=== PATIENT | female | born 1990 | race Caucasian/White ===

== ENCOUNTER 2024-12-10 17:36 | Emergency (ER) | payer BC ==
--- NOTE | 2024-12-10 18:24 | RAD REPORT ---
EXAMINATION: ONE VIEW CHEST XR CLINICAL INDICATION: Cough;Congestion TECHNIQUE: Frontal chest projection is submitted. Examination is limited by patient positioning and t echnique. COMPARISON: No prior exam. FINDINGS: The lungs are well inflated and clear. The heart is upper limit of normal in size. No displaced fract ures identified. IMPRESSION: No acute intrathoracic abnormalities.
[2024-12-10] MEDS ORDERED: ONDANSETRON 4 MG/2 ML VIAL ONE (18:33)
[2024-12-10] MEDS ORDERED: NA CHLORIDE 0.9% 1,000 ML ONE (18:33)
[2024-12-10] MEDS ORDERED: IBUPROFEN 200 MG TAB PO ONE (18:33)
[2024-12-10 18:34] LABS: Influenza A Ag Negative; Influenza B Ag Negative; SARS-CoV-2 Antigen Rapid Res Negative (Negative)
[2024-12-10 18:36] LABS: Absolute Lymphocytes (CBC) 0.8 K/uL (0.7-4.9); Absolute Monocytes 0.3 K/uL (0.1-1.3); Basophils % 0.3 % (0-1.3); Eosinophils % 0.1 % (0-4.4); Hematocrit 40.3 % (36.0-45.0); Hemoglobin 13.8 g/dL (12.0-15.0); Lymphocytes % 25.6 % (15.3-44.8); MCHC 34.3 g/dL (32.0-36.0); MCV 87.6 fL (80-100); MPV 7.4 fL (7.6-11.3); Monocytes % 9.4 % (3.3-12.3); Neutrophils % 64.6 % (41.7-73.7); Nucleated Red Blood Cells % 0.1 % (0-0); Platelets 160 thou/uL (152-406); Red Cell Distribution Width 12.1 % (12.1-15.2)
[2024-12-10 18:37] LABS: Specific Gravity > 1.030 (1.005-1.030); Urine Bacteria None Seen /HPF (<20); Urine Bilirubin NEGATIVE (Negative); Urine Blood Trace (Negative); Urine Clarity Extremely Turbid (Clear); Urine Color Yellow (Yellow); Urine Crystals Unidentified Few /HPF (None Seen); Urine Culture Reflex Order NOT NEEDED; Urine Glucose NEGATIVE (Negative); Urine Ketones 4+ (Over) (Negative); Urine Microscopic Reflex YN ORDER UMIC; Urine Mucus Slight /HPF (None Seen); Urine Nitrite NEGATIVE (Negative); Urine Protein 1+ (Negative); Urine RBC <5 /HPF (None Seen); Urine Urobilinogen 1+ (Normal); Urine WBC <5 /HPF (<5); Urine WBC Clump Rare /HPF (None Seen); Urine Yeast (Budding) Trace /HPF (None Seen)
[2024-12-10 18:50] LABS: Albumin 3.8 g/dL (3.4-5.0); Anion Gap 13.5 mEq/L (5.0-15.0); Bilirubin Total 0.5 mg/dL (0.2-1.0); Globulin 3.9 g/dL (2.3-3.5); Monoscreen NEG (NEG); Potassium 3.5 mEq/L (3.5-5.1); Protein, Total 7.7 g/dL (6.4-8.2)
--- NOTE | 2024-12-10 18:56 | ER ---
Nurse's Notes [facility] Name: Nidhi No Age: 34 yrs Sex: Female : 1990 Arrival Date: 12/10/2024 Time: 17:36 Bed 19 Private MD: Diagnosis: Streptococcal pharyngitis Presentation: 12/10 17:52 Chief complaint: Patient states: fever, chills, nausea , body aches, nausea X 5 days. iw Coronavirus screen: Client presents with at least one sign or symptom that may indicate coronavirus-19. Ebola Screen: No symptoms or risks identified at this time. Initial Sepsis Screen: Does the patient meet any 2 criteria? HR > 90 bpm. Does the patient have a suspected source of infection? No. Patient's initial sepsis screen is negative. Risk Assessment: Do you want to hurt yourself or someone else? Patient reports no desire to harm self or others. Onset of symptoms was December 07, 2024. 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 - Infectious Disease History:: Denies. - Social history:: Smoking status: Patient denies any tobacco usage or history of. Screenin:10 [facility] ED Fall Risk Assessment (Adult) History of falling in the last 3 months, me1 including since admission No falls in past 3 months (0 pts) Confusion or Disorientation No (0 pts) Intoxicated or Sedated No (0 pts) Impaired Gait No (0 pts) Mobility Assist Device Used No (0 pt) Altered Elimination No (0 pt) Score/Fall Risk Level 0 - 2 = Low Risk Maintained a safe environment, Provided non-skid footwear, Hourly rounding (assess needs \T\ fall precautionary measures) done. Abuse screen: Denies threats or abuse. Nutritional screening: No deficits noted. Tuberculosis screening: No symptoms or risk factors identified. Assessment: 18:10 General: Appears ill, well groomed, well developed, well nourished, Behavior is calm, me1 cooperative, appropriate for age, Reports fever, chills, nausea , body aches, nausea X 5 days. Pain: Complains of pain in generalized Pain does not radiate. Pain currently is 6 out of 10 on a pain scale. Quality of pain is described as aching, Pain began 5 days Is continuous. Neuro: Level of Consciousness is awake, alert, obeys commands, Oriented to person, place, time, situation, Appropriate for age. Cardiovascular: Patient's skin is warm and dry. Respiratory: Airway is patent Respiratory effort is even, unlabored, Respiratory pattern is regular, symmetrical. GI: Abdomen is non-distended, Bowel sounds present X 4 quads. Reports nausea, vomiting, since 5 days. : No signs and/or symptoms were reported regarding the genitourinary system. EENT: No signs and/or symptoms were reported regarding the EENT system. Derm: Skin is intact, is healthy with good turgor, Skin is pink, warm \T\ dry. Musculoskeletal: Reports generalized body aches. 19:11 General: Discharge delayed for IV fluids to finish. me1 Vital Signs: 17:52 BP 118 / 80; Pulse 139; Resp 19; Temp 100.4; Pulse Ox 96% on R/A; Weight 68.04 kg; iw Height 5 ft. 4 in. ; 18:00 BP 117 / 72; Pulse 110; Resp 18; Pulse Ox 99% ; me1 19:00 BP 113 / 74; Pulse 112; Resp 18; Pulse Ox 99% ; me1 19:30 BP 104 / 58; Pulse 106; Resp 18; Temp 99.1; Pulse Ox 100% ; me1 17:52 Body Mass Index 25.75 (68.04 kg, 162.56 cm) iw ED Course: 17:38 Patient arrived in ED. am2 17:47 [facility] kb 17:47 Raheem García MD is Attending Physician. kb 17:53 Triage completed. iw 17:54 Arm band placed on. iw 18:09 Group A Streptococcus Rapid Sent. iw 18:09 COVID-19 Ag + Flu A+B Ag Sent. iw 18:10 Patient has correct armband on for positive identification. Bed in low position. Call me1 light in reach. Side rails up X 1. Provided Education on: POC. Verbalized understanding.. Client placed on continuous cardiac and pulse oximetry monitoring. NIBP monitoring applied. Pulse ox on. NIBP on. 18:10 No provider procedures requiring assistance completed. me1 18:19 Chest Single View XRAY In Process Unspecified. EDFL 18:23 Yee Thornton, MYKEL is Primary Nurse. me1 18:40 Garden Screen Profile Sent. me1 18:41 Initial lab(s) drawn, by ED staff, sent to lab. Inserted saline lock: 20 gauge in right me1 antecubital area, using aseptic technique. 19:43 IV discontinued, intact, bleeding controlled, No redness/swelling at site. Pressure me1 dressing applied. Administered Medications: 18:40 Drug: Ondansetron IVP 4 mg IVP once; over 2 minutes Route: IVP; Site: right antecubital;me1 19:08 Follow up: Response: No adverse reaction; Nausea is decreased me1 18:40 Drug: NS 0.9% IV 1000 ml IV at 1 bolus Per protocol; to be given as a bolus over 60 me1 minutes Route: IV; Rate: 1 bolus; Site: right antecubital; 19:31 Follow up: Response: No adverse reaction; IV Status: Completed infusion; IV Intake: me1 1000ml 18:40 Drug: Ibuprofen PO 600 mg PO once Route: PO; me1 19:08 Follow up: Response: No adverse reaction; Temperature is decreased me1 19:33 Drug: Amoxicillin-Clavulanate PO 875 mg PO once Route: PO; me1 19:42 Follow up: Response: No adverse reaction me1 Medication: 18:10 VIS not applicable for this client. me1 Intake: 19:31 IV: 1000ml; Total: 1000ml. me1 Outcome: 18:56 Discharge ordered by MD. bhatia 19:43 Discharged to home ambulatory, me1 19:43 Condition: stable 19:43 Discharge instructions given to patient, Instructed on discharge instructions, follow up and referral plans. medication usage, Demonstrated understanding of instructions, follow-up care, medications, Prescriptions given X 2, 19:43 Patient left the ED. me1 Signatures: Dispatcher [employer] [facility] Dacia Spaulding, CHARY-C [employer] FISHING TOOL OPERATOR-Mateob Keyona Sood RN RN iw Moreno, Amanda am2 Yee Thornton, RN RN me1 Corrections: (The following items were deleted from the chart) 17:54 17:52 BP 118 / 80; Pulse 139bpm; Resp 19bpm; Pulse Ox 96% RA; Temp 100.4F; iw iw 18:41 17:52 Chief complaint: Patient states: fever, chills, nausea , body aches, nausea X 5 me1 days iw 19:31 19:08 Response: No adverse reaction; IV Status: Completed infusion; IV Intake: 1000ml me1 me1
--- NOTE | 2024-12-10 18:56 | EDPHYS ---
Physician Documentation [facility] Name: Nidhi No Age: 34 yrs Sex: Female : 1990 Arrival Date: 12/10/2024 Time: 17:36 Bed 19 Private MD: ED Physician Raheem García HPI: 12/10 17:50 This 34 yrs old Female presents to ER via Unassigned with complaints of Fever, Cough, kb Nasal Congestion, Nausea/Vomiting. 17:50 Pt is a 34 year old female who presents for headache, cough, congestion, nausea, kb vomiting, runny nose, sore throat, fever, chills, bodyaches for 5 days. Hasn't been able to tolerate anything by mouth since Wednesday. . 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 - Infectious Disease History:: Denies. - Social history:: Smoking status: Patient denies any tobacco usage or history of. ROS: 17:50 Constitutional: As per HPI kb Exam: 18:55 Constitutional: This is a well developed, well nourished patient who is awake, alert, kb and in no acute distress. Head/Face: Normocephalic, atraumatic. ENT: Moist Mucous membranes Respiratory: Respirations even and unlabored. No increased work of breathing. Talking in full sentences Abdomen/GI: Soft, non-tender. No distention Skin: Warm, dry with normal turgor. Normal color. MS/ Extremity: Pulses equal, no cyanosis. Neurovascular intact. Full, normal range of motion. Neuro: Awake and alert, GCS 15, oriented to person, place, time, and situation. 18:55 ENT: Posterior pharynx: is normal, 18:55 Cardiovascular: Rate: tachycardic, Vital Signs: 17:52 BP 118 / 80; Pulse 139; Resp 19; Temp 100.4; Pulse Ox 96% on R/A; Weight 68.04 kg; iw Height 5 ft. 4 in. ; 18:00 BP 117 / 72; Pulse 110; Resp 18; Pulse Ox 99% ; me1 19:00 BP 113 / 74; Pulse 112; Resp 18; Pulse Ox 99% ; me1 19:30 BP 104 / 58; Pulse 106; Resp 18; Temp 99.1; Pulse Ox 100% ; me1 17:52 Body Mass Index 25.75 (68.04 kg, 162.56 cm) iw MDM: 17:47 Medical Screening Exam initiated kb 18:55 Data reviewed: vital signs, nurses notes. kb 18:55 Differential diagnosis: flu, covid, pneumonia, strep, dehydration. Counseling: I had a kb detailed discussion with the patient and/or guardian regarding the historical points, exam findings, and any diagnostic results supporting the discharge/admit diagnosis, lab results, radiology results, the need for outpatient follow up, a family practitioner, to return to the emergency department if symptoms worsen or persist or if there are any questions or concerns that arise at home. 12/10 17:51 Order name: CBC with Diff; Complete Time: 18:39 kb 12/10 17:51 Order name: CMP; Complete Time: 18:55 kb 12/10 17:51 Order name: Lipase; Complete Time: 18:55 kb 12/10 17:51 Order name: Test, Urine; Complete Time: 18:39 kb 12/10 17:51 Order name: Urinalysis w/ reflexes; Complete Time: 18:39 kb 12/10 17:51 Order name: [place] Screen Profile; Complete Time: 18:55 kb 12/10 17:51 Order name: Group A Streptococcus Rapid; Complete Time: 18:35 kb 12/10 17:51 Order name: COVID-19 Ag + Flu A+B Ag; Complete Time: 18:35 kb 12/10 17:54 Order name: Chest Single View XRAY; Complete Time: 18:29 kb 12/10 17:51 Order name: IV Saline Lock; Complete Time: 18:40 kb 12/10 17:51 Order name: Labs collected and sent; Complete Time: 18:40 kb Administered Medications: 18:40 Drug: Ondansetron IVP 4 mg IVP once; over 2 minutes Route: IVP; Site: right antecubital;me1 19:08 Follow up: Response: No adverse reaction; Nausea is decreased me1 18:40 Drug: NS 0.9% IV 1000 ml IV at 1 bolus Per protocol; to be given as a bolus over 60 me1 minutes Route: IV; Rate: 1 bolus; Site: right antecubital; 19:31 Follow up: Response: No adverse reaction; IV Status: Completed infusion; IV Intake: me1 1000ml 18:40 Drug: Ibuprofen PO 600 mg PO once Route: PO; me1 19:08 Follow up: Response: No adverse reaction; Temperature is decreased me1 19:33 Drug: Amoxicillin-Clavulanate PO 875 mg PO once Route: PO; me1 19:42 Follow up: Response: No adverse reaction me1 Disposition: 19:19 Co-signature as Attending Physician, Raheem García MD I reviewed the patient's care rt provided by the Advanced Practice Provider and agree with the diagnosis and treatment plan. Disposition Summary: 12/10/24 18:56 Discharge Ordered Notes: Location: Home kb Problem: new kb Symptoms: are unchanged kb Condition: Stable kb Diagnosis - Streptococcal pharyngitis kb Followup: kb - With: Emergency Department - When: As needed - Reason: Worsening of condition Followup: kb - With: Private Physician - When: 2 - 3 days - Reason: Recheck today's complaints, Continuance of care, Re-evaluation by your physician Discharge Instructions: - Discharge Summary Sheet kb - Strep Throat, Adult, [id number] kb Forms: - Medication Reconciliation Form kb - Antibiotic Education kb - Prescription Opioid Use kb - Patient Portal Instructions kb - Leadership Thank You Letter kb Prescriptions: - ondansetron 4 mg Oral Tablet,disintegrating - take 1 tablet ORAL route every 6 hours As needed; 12 tablet; Refills: 0, kb Product Selection Permitted - Augmentin 875-125 mg Oral Tablet - take 1 tablet ORAL route every 12 hours for 10 days; 20 tablet; Refills: 0, kb Product Selection Permitted Signatures: Dispatcher [employer] Dacia Goff FNP-Melissa BLISSP-Keyona Chaney, MYKEL HOGUE iw Raheem García MD MD rt Yee Thornton RN RN me1 Corrections: (The following items were deleted from the chart) 17:51 17:51 CBC+H.LAB.BRZ ordered. EDMS EDMS 17:51 17:51 COMPREHENSIVE METABOLIC PANEL+C.LAB.BRZ ordered. EDMS EDMS 17:51 17:51 LIPASE+C.LAB.BRZ ordered. EDMS EDMS 17: 17:51 Test, Urine+UC.LAB.BRZ ordered. EDMS EDMS 17:51 Urinalysis+U.LAB.BRZ ordered. EDMS EDMS 17:51 MONO SCREEN PROFILE+I.LAB.BRZ ordered. EDMS EDMS 17:51 Group A Streptococcus Rapid Sc+I.LAB.BRZ ordered. EDMS EDMS 17:51 COVID-19 Ag + Flu A+B Ag+I.LAB.BRZ ordered. EDMS EDMS
[2024-12-10] MEDS ORDERED: AMOX/K CLAV 875 MG TAB ONE (19:32)
[2024-12-10 19:53] VITALS: BP 104/58; TEMP 99.1; O2SAT 100
== END 2024-12-10 19:43 | disposition home or self-care (01) ==
LOC: ER 17:36
DX: J02.0 Streptococcal pharyngitis (principal); Z11.52 Encounter for screening for COVID-19
CPT/HCPCS: 96361; 85025; 81001; 36415; 86308; 81025; 83690; 80053; 71045; 96374; 99284; 87428; J2405; J7030